=== PATIENT | female | born 1990 | race Caucasian/White ===

== ENCOUNTER 2022-12-30 09:18 | Outpatient (CLI) | payer OTHER, SELFPAY | END 2022-12-30 09:19 | disposition home or self-care (01) | PROVIDERS: PCP Family Medicine; Visit Provider Physician Assistant | DX: Z01.419 Encounter for gynecological examination (general) (routine) without abnormal findings (principal); E66.09 Other obesity due to excess calories; Z13.6 Encounter for screening for cardiovascular disorders; Z13.1 Encounter for screening for diabetes mellitus | CPT/HCPCS: 80061; 82947; 84439; 84443 ==

== ENCOUNTER 2022-12-31 09:01 | Outpatient (CLI) | payer OTHER, SELFPAY | END 2022-12-31 09:02 | disposition home or self-care (01) | PROVIDERS: PCP Family Medicine; Visit Provider Family Medicine | DX: I10 Essential (primary) hypertension (principal); E55.9 Vitamin D deficiency, unspecified | CPT/HCPCS: 80053; 82306 ==

== ENCOUNTER 2023-01-30 10:41 | Outpatient (CLI) | payer OTHER, SELFPAY | END 2023-01-30 10:42 | disposition home or self-care (01) | PROVIDERS: PCP Family Medicine; Referring Provider Family Medicine; Visit Provider Family Medicine | DX: E55.9 Vitamin D deficiency, unspecified (principal); I10 Essential (primary) hypertension; R94.6 Abnormal results of thyroid function studies; Z13.6 Encounter for screening for cardiovascular disorders | CPT/HCPCS: 80061; 84443 ==

== ENCOUNTER 2023-03-02 11:11 | Outpatient (CLI) | payer OTHER, SELFPAY ==
--- NOTE | 2023-03-02 12:26 | W.ANESCHARGE ---
Anesthesia Charges Start Date/Time Anesthesia Start Date: 03/02/23 Anesthesia Start Time: 12:00 Stop Date/Time Anesthesia Stop Date: 03/02/23 Anesthesia Stop Time: 12:25
--- NOTE | 2023-03-02 12:45 | W.ANESCHARGE ---
Anesthesia Charges Start Date/Time Anesthesia Start Date: 03/02/23 Anesthesia Start Time: 12:00 Stop Date/Time Anesthesia Stop Date: 03/02/23 Anesthesia Stop Time: 12:25
== END 2023-03-02 11:12 | disposition home or self-care (01) ==
LOC: OP CLINIC 11:12
PROVIDERS: PCP Family Medicine; Visit Provider Internal Medicine
DX: Z12.11 Encounter for screening for malignant neoplasm of colon (principal); K63.5 Polyp of colon; Z80.0 Family history of malignant neoplasm of digestive organs
CPT/HCPCS: 00811; 45380; 88305; J2704

== ENCOUNTER 2023-06-04 13:48 | Outpatient (CLI) | payer OTHER, SELFPAY ==
--- NOTE | 2023-06-04 14:00 | US_ITS ---
Patient: ESSENCE BUTCHER Facility:?[facility] RIS Patient ID:?[id number] Site Patient ID:?[id number]. Site :?1992 Study:?US-OB Pelvis TA/TV Pelvic US-06/04/2023 2:47:47 PM Ordering Physician:Cory May Final Report: INDICATION: Infertility TECHNIQUE: Transabdominal and transvaginal scanning was performed. Transvaginal scanning was performed to optimally evaluate the endometrium and adnexa. Ovarian blood flow was evaluated with color-flow and pulsed Doppler. COMPARISON: None. FINDINGS: The uterus is normal in size and shape. The uterus measures 6.8 x 3.0 x 4.1 cm. No myometrial mass is evident. The endometrial stripe is normal in thickness at 6 mm. A simple 2.6 cm right ovarian follicular cyst is noted. The right ovary measures 5.3 x 3.5 x 2.6 cm and left 3.1 x 2.6 x 2.1 cm. Ovarian blood flow is demonstrated with color-flow and pulsed Doppler. No adnexal mass is evident. No free fluid is demonstrated. IMPRESSION: Negative pelvic ultrasound except for a simple 2.6 cm right ovarian follicular cyst. Dictated by Jorge Gallegos MD @ 06/05/2023 11:54:53 AM Signed by:?Jorge Gallegos MD @06/05/2023 11:54:53 AM (Electronic Signature)
== END 2023-06-04 13:49 | disposition home or self-care (01) ==
LOC: US 13:48
PROVIDERS: PCP Family Medicine; Visit Provider Physician Assistant
DX: N97.9 Female infertility, unspecified (principal); N83.201 Unspecified ovarian cyst, right side
CPT/HCPCS: 76830; 76856

== ENCOUNTER 2023-06-15 11:10 | Outpatient (CLI) | payer OTHER, SELFPAY | END 2023-06-15 11:11 | disposition home or self-care (01) | LOC: NFLDREF 07-06 12:00 | PROVIDERS: PCP Family Medicine; Referring Provider Family Medicine; Visit Provider Physician Assistant | DX: N97.9 Female infertility, unspecified (principal) | CPT/HCPCS: 82670; 83001; 83520; 84146; 84443 ==

== ENCOUNTER 2023-06-16 10:20 | Outpatient (CLI) | payer OTHER, SELFPAY ==
--- NOTE | 2023-06-16 10:15 | FL_ITS ---
Patient: ESSENCE BUTCHER Facility:?[facility] RIS Patient ID:?[id number] Site Patient ID:?[id number]. Site :?1992 Study:?XRay-Abdomen HSG UNDER FLUORO-06/16/2023 12:16:14 PM Ordering Physician:TAMERA Final Report: Indication: INFERTILITY Technique: Routine hysterosalpingogram performed. Fluoroscopic time 0.17 minutes. IMPRESSION: Normal spillage of contrast from the endometrial canal through the patent fallopian tubes into the peritoneal cavity. No filling defect. Normal exam. Dictated by Chico Multani MD @ 06/16/2023 12:31:49 PM Signed by:?Chico Multani MD @06/16/2023 12:31:49 PM (Electronic Signature)
--- NOTE | 2023-06-16 12:07 | W.PM.GYNPROC ---
Procedure Note Date of procedure: 06/16/23 Will [facility] bill your pro fee for this procedure?: Yes Pre-op diagnosis: Primary Infertility Post-op diagnosis: Primary Infertility Procedure: Hysterosalpingogram Anesthesia: none Complications: None Surgeon: Damaris Oneill MD Estimated blood loss (mL): 5 Pathology: none sent Condition: stable Disposition: other (Outpatient) Findings: Normal exam. Procedure Description: PROCEDURE: After obtaining verbal consent, the patient was placed in the dorsal lithotomy position on the x-ray table. An open-sided bivalve speculum was introduced into the vagina and the cervix easily visualized. The cervix and vagina were then prepped with Betadine. The anterior lip of the cervix was grasped with a single-tooth tenaculum for traction. A balloon tipped double-lumen catheter was then gently inserted through the cervical opening into the uterine cavity to the level of the fundus. The balloon was insufflated with 3 mL of air. The tenaculum and speculum were removed. The patient was repositioned in the supine position, covered, and the radiologist was called to the room. A hysterosalpingogram was then performed. A total of 15 cc of Optiray 300 water soluble contrast dye was injected through the double-lumen catheter under moderate pressure. There was immediate fill of the uterine cavity to the cornua and immediate fill of both fallopian tubes and free spillage of dye on both sides. The balloon was deflated. The catheter was removed. The patient tolerated the procedure well, though she did have moderate cramping discomfort during and just after the procedure. She was discharged to home in stable condition and to [facility].
== END 2023-06-16 10:21 | disposition home or self-care (01) ==
LOC: RAD 10:21
PROVIDERS: PCP Family Medicine; Visit Provider Obstetrics & Gynecology
DX: N97.9 Female infertility, unspecified (principal)
CPT/HCPCS: 58340; 74740; A4649; Q9967

== ENCOUNTER 2023-07-02 11:23 | Outpatient (CLI) | payer OTHER, SELFPAY | END 2023-07-02 11:24 | disposition home or self-care (01) | LOC: NFLDREF 07-19 23:41 | PROVIDERS: PCP Family Medicine; Referring Provider Family Medicine; Visit Provider Physician Assistant | DX: N97.9 Female infertility, unspecified (principal) | CPT/HCPCS: 84144 ==

== ENCOUNTER 2024-01-04 10:16 | Outpatient (CLI) | payer OTHER, SELFPAY | END 2024-01-04 10:17 | disposition home or self-care (01) | LOC: NFLDREF 01-06 14:17 | PROVIDERS: PCP Family Medicine; Referring Provider Family Medicine; Visit Provider Family Medicine | DX: E78.5 Hyperlipidemia, unspecified (principal); I10 Essential (primary) hypertension; E55.9 Vitamin D deficiency, unspecified | CPT/HCPCS: 80053; 82306; 83540; 83550 ==

== ENCOUNTER 2024-01-21 08:57 | Outpatient (CLI) | payer OTHER, SELFPAY ==
--- NOTE | 2024-01-21 09:15 | CRLHL7_ITS ---
For Patients: As a result of the Century Cures Act, medical imaging exams and procedure reports are released immediately into your electronic medical record. You may view this report before your referring provider. If you have questions, please contact your health care provider. INDICATION: First trimester scan, establish dates. COMPARISON: None. TECHNIQUE: Real-time painting-scale imaging of the pelvis was performed. FINDINGS: Sonographic imaging demonstrates a single living intrauterine gestation. The embryo demonstrates a regular cardiac rate measuring 163 beats per minute. The embryo`s crown-rump length measurement of 1.5 cm corresponds to a gestational age of 7 weeks 6 days with a sonographic due date of 09/02/2024. There is a normal-appearing yolk sac. There are no gross abnormalities noted within the embryo at this early state of development. The gestational sac has a normal appearance. There is no evidence of a perigestational hemorrhage. The amount of fluid within the sac appears appropriate for gestational age. The cervix is closed. The myometrium appears normal. Normal right ovary. Corpus luteal cyst left ovary. There are no suspicious fluid collections noted in the cul-de-sac. IMPRESSION: Normal first trimester OB ultrasound exam. Gestational age calculated at 7 weeks 6 days with a sonographic due date of 09/02/2024. Dictated by Chico Multani MD @ 01/22/2024 9:02:26 AM (Electronically Signed)
== END 2024-01-21 08:58 | disposition home or self-care (01) ==
LOC: US 08:59
PROVIDERS: PCP Family Medicine; Visit Provider Physician Assistant
DX: Z34.81 Encounter for supervision of other normal pregnancy, first trimester (principal); Z3A.01 Less than 8 weeks gestation of pregnancy
CPT/HCPCS: 76817

== ENCOUNTER 2024-01-21 10:09 | Outpatient (CLI) | payer OTHER, SELFPAY | END 2024-01-21 10:10 | disposition home or self-care (01) | PROVIDERS: PCP Family Medicine; Visit Provider Physician Assistant | DX: Z34.91 Encounter for supervision of normal pregnancy, unspecified, first trimester (principal); Z3A.01 Less than 8 weeks gestation of pregnancy | CPT/HCPCS: 82565; 82570; 83021; 84156; 84450; 84460; 84520; 86592; 86703; 86704; 86706; 86762; 86787; 86803; 86850; 86900; 86901; 87086; 87340 ==

== ENCOUNTER 2024-02-19 11:04 | Outpatient (CLI) | payer OTHER, SELFPAY ==
[2024-02-19 14:43] LABS: Chlamydia DNA Amplified* NOT DETECTED (No Detected); GC DNA Amplified* NOT DETECTED (No Detected)
[2024-02-21 04:40] LABS: HPV Source Cervical; HPV, High Risk by TMA Not Detected
== END 2024-02-19 11:05 | disposition home or self-care (01) ==
PROVIDERS: PCP Family Medicine; Visit Provider Obstetrics & Gynecology
DX: Z34.91 Encounter for supervision of normal pregnancy, unspecified, first trimester (principal); Z12.4 Encounter for screening for malignant neoplasm of cervix; Z11.3 Encounter for screening for infections with a predominantly sexual mode of transmission; Z3A.12 12 weeks gestation of pregnancy
CPT/HCPCS: 87491; 87591; 87624; 87625; 88141; 88142

== ENCOUNTER 2024-03-11 07:45 | Outpatient (CLI) | payer OTHER, SELFPAY | END 2024-03-11 07:46 | disposition home or self-care (01) | LOC: NFLDREF 03-20 23:44 | PROVIDERS: PCP Family Medicine; Referring Provider Family Medicine; Visit Provider Physician Assistant | DX: Z34.91 Encounter for supervision of normal pregnancy, unspecified, first trimester (principal) | CPT/HCPCS: 82570; 84156 ==

== ENCOUNTER 2024-06-09 14:30 | Outpatient (CLI) | payer OTHER, SELFPAY | END 2024-06-09 14:31 | disposition home or self-care (01) | LOC: NFLDREF 06-12 08:15 | PROVIDERS: PCP Family Medicine; Referring Provider Family Medicine; Visit Provider Internal Medicine Nephrology | DX: O12.12 Gestational proteinuria, second trimester (principal); E87.1 Hypo-osmolality and hyponatremia; R82.90 Unspecified abnormal findings in urine; Z3A.20 20 weeks gestation of pregnancy | CPT/HCPCS: 80069; 82043; 82570; 84439; 84443; 87086 ==

== ENCOUNTER 2024-06-13 08:56 | Outpatient (CLI) | payer OTHER, SELFPAY ==
--- NOTE | 2024-06-13 09:15 | CRLHL7_ITS ---
For Patients: As a result of the Century Cures Act, medical imaging exams and procedure reports are released immediately into your electronic medical record. You may view this report before your referring provider. If you have questions, please contact your health care provider. OB ULTRASOUND FOLLOW-UP LIMITED, 06/13/2024 CLINICAL HISTORY: CHTN. COMPARISON: 05/05/2024 MFM, 04/15/2024 MFM, 01/21/2024. TECHNIQUE: Real time painting scale imaging of the fetus was performed transabdominally. FINDINGS: LMP: 11/27/2023. HE by LMP: 09/02/2024. GA: 28 weeks 3 days. CERVIX: TV measurement 2.8 cm. POSITIONING: Vertex. AMNIOTIC FLUID: 5.5 cm SDP. PLACENTA: Technique: TA. Placenta Position: Anterior. DOPPLERS: Heart Rate: 157 bpm. BIOMETRY: BPD: 7.5 cm, 29 weeks 6 days. 82.1% HC: 26.8 cm, 29 weeks 2 days. 41.9% AC: 27.5 cm, 31 weeks 4 days. >97% FL: 5.4 cm, 28 weeks 4 days. 38.1% FL/AC Ratio: 19.6% HC/AC Ratio: 1.0. EFW: 1541 grams, 3 lb 6 oz. Age by this US: 29 weeks 6 days. HE by this US: 08/23/2024. Percentile by HE: 94.5?% IMPRESSION: 1. Sonographic gestational age 29 weeks 6 days and sonographic due date 08/23/2024. Sonographic age 10 days ahead of the clinical age. 2. Estimated weight 95th percentile. Abdominal circumference greater than 97th percentile. 3. Note is made that the head measurements were difficult due to position. Transabdominal and transvaginal imaging techniques were attempted. The cervix is closed and measures 2.9 cm. Chico Multani M.D. Diagnostic Radiologist [email or web address] Transcribed: 3:25 pm DW/Dictated by: Chico Multani MD @ 06/13/2024 2:50:00 PM (Electronically Signed)
== END 2024-06-13 08:57 | disposition home or self-care (01) ==
LOC: US 08:56
PROVIDERS: PCP Family Medicine; Visit Provider Obstetrics & Gynecology
DX: O10.913 Unspecified pre-existing hypertension complicating pregnancy, third trimester (principal); O36.63X0 Maternal care for excessive fetal growth, third trimester, not applicable or unspecified; Z3A.28 28 weeks gestation of pregnancy
CPT/HCPCS: 76816; 76817; 86592

== ENCOUNTER 2024-07-12 09:06 | Outpatient (CLI) | payer OTHER, SELFPAY ==
--- NOTE | 2024-07-12 09:15 | CRLHL7_ITS ---
For Patients: As a result of the Century Cures Act, medical imaging exams and procedure reports are released immediately into your electronic medical record. You may view this report before your referring provider. If you have questions, please contact your health care provider. OB ULTRASOUND BIOPHYSICAL PROFILE, 07/12/2024 CLINICAL HISTORY: CHTN. COMPARISON: 06/13/2024, 05/05/2024, 04/15/2024. TECHNIQUE: Real time painting scale imaging of the fetus was performed. Transabdominal imaging performed. FINDINGS: LMP: 11/27/2023. HE by LMP: 09/02/2024. GA: 32 weeks 4 days. GESTATION: Single. CERVIX: Not visualized. POSITION: Vertex. AMNIOTIC FLUID: 3.7 cm SDP. BIOPHYSICAL PROFILE: Gross Body Movements: 2 Tone: 2 Respiratory Activity: 2 Amniotic Fluid SDP: 2 Total: 8/8 PLACENTA: Technique: TA. Placenta Position: Anterior. DOPPLERS: Heart Rate: 141 bpm. BIOMETRY: BPD: 8.4 cm, 34 weeks 0 days. 81.9% HC: 29.7 cm, 32 weeks 6 days. 20.4% AC: 31.5 cm, 35 weeks 3 days. >97% FL: 6.0 cm, 31 weeks 3 days. 12.1% EFW: 2312 grams, 5 lb 2 oz. Age by this US: 33 weeks 3 days. HE by this US: 08/27/2024. Percentile by HE: 81.9% IMPRESSION: 1. Normal biophysical profile score of 8/8. 2. Sonographic gestational age 33 weeks 3 days and sonographic due date 08/27/2024. Sonographic age 6 days ahead of the clinical age. 3. Estimated weight 82nd percentile. Abdominal circumference greater than 97th percentile. 4. The nuchal cord is wrapped around the neck 1.5 times. Chico Multani M.D. Diagnostic Radiologist [email or web address] Transcribed: 11:00 am DW/Dictated by: Chico Multani MD @ 07/12/2024 10:27:00 AM (Electronically Signed)
== END 2024-07-12 09:07 | disposition home or self-care (01) ==
PROVIDERS: PCP Family Medicine; Visit Provider Obstetrics & Gynecology
DX: O10.913 Unspecified pre-existing hypertension complicating pregnancy, third trimester (principal); O36.5930 Maternal care for other known or suspected poor fetal growth, third trimester, not applicable or unspecified; Z3A.32 32 weeks gestation of pregnancy
CPT/HCPCS: 76816; 76819; 82565; 82570; 84156; 84450; 84460

== ENCOUNTER 2024-07-18 09:04 | Outpatient (CLI) | payer OTHER, SELFPAY ==
--- NOTE | 2024-07-18 09:15 | CRLHL7_ITS ---
For Patients: As a result of the Century Cures Act, medical imaging exams and procedure reports are released immediately into your electronic medical record. You may view this report before your referring provider. If you have questions, please contact your health care provider. LMP: 11/27/2023. HE by LMP: 09/02/2024. GA: 33w, 3d. Single. INDICATION: CHTN. CERVIX: Not visualized. POSITIONING: Vertex. AMNIOTIC FLUID: 5.3 cm SDP. BIOPHYSICAL PROFILE: Total score: 8. Gross body movements: 2. tone: 2. Respiratory activity: 2. Amniotic fluid: 2. (SDP N: Increase 2 x 1 cm) PLACENTA: Technique: Transabdominal. PLACENTA POSITION: Anterior left wall. DOPPLER: heart rate: 138 bpm. IMPRESSION: Normal biophysical profile 09/23. Chico Multani M.D. Diagnostic Radiologist [email or web address] bM/Dictated by: Chico Multani MD @ 07/18/2024 8:49:00 PM (Electronically Signed)
== END 2024-07-18 09:05 | disposition home or self-care (01) ==
LOC: US 09:04
PROVIDERS: PCP Family Medicine; Visit Provider Obstetrics & Gynecology
DX: O10.913 Unspecified pre-existing hypertension complicating pregnancy, third trimester (principal); Z3A.33 33 weeks gestation of pregnancy
CPT/HCPCS: 76819; 82565; 82570; 84156; 84450; 84460

== ENCOUNTER 2024-07-21 15:00 | Outpatient (CLI) | payer OTHER, SELFPAY | END 2024-07-21 15:01 | disposition home or self-care (01) | LOC: NFLDREF 07-23 07:18 | PROVIDERS: PCP Family Medicine; Referring Provider Family Medicine; Visit Provider Obstetrics & Gynecology | DX: O12.10 Gestational proteinuria, unspecified trimester (principal) | CPT/HCPCS: 82570; 84156 ==

== ENCOUNTER 2024-07-25 08:08 | Outpatient (CLI) | payer OTHER, SELFPAY ==
--- NOTE | 2024-07-25 08:15 | CRLHL7_ITS ---
For Patients: As a result of the Century Cures Act, medical imaging exams and procedure reports are released immediately into your electronic medical record. You may view this report before your referring provider. If you have questions, please contact your health care provider. OB ULTRASOUND BIOPHYSICAL PROFILE TRANSABDOMINAL HE by LMP: . GA: 34 w, 3 d. Single. Comparison: US 07/18/2024, 07/12/2024, 06/13/2024. INDICATION: CHTN. TECHNIQUE: Real time painting scale imaging of the fetus was performed. Transabdominal imaging performed. CERVIX: Not visualized. POSITIONING: Vertex. AMNIOTIC FLUID: 4.0 cm SDP (N: greater than 2 x 1 cm) BIOPHYSICAL PROFILE: Gross body movements: 2. tone: 2. Respiratory activity: 2. Amniotic fluid: 2. SDP (N: greater than 2 x 1 cm). Total score: 8. PLACENTA: Technique: Transabdominal. PLACENTA POSITION: Anterior. DOPPLER: heart rate: 144 bpm. IMPRESSION: Normal biophysical profile 09/23. Chico Multani M.D. Diagnostic Radiologist [email or web address] SP/Dictated by: Chico Multani MD @ 07/25/2024 4:39:00 PM (Electronically Signed)
== END 2024-07-25 08:09 | disposition home or self-care (01) ==
LOC: US 08:09
PROVIDERS: PCP Family Medicine; Visit Provider Obstetrics & Gynecology
DX: O10.919 Unspecified pre-existing hypertension complicating pregnancy, unspecified trimester (principal)
CPT/HCPCS: 76819; 80069; 82043; 82565; 82570; 84156; 84450; 84460; 84550; 87086

== ENCOUNTER 2024-08-01 09:01 | Outpatient (CLI) | payer OTHER, SELFPAY ==
--- NOTE | 2024-08-01 09:15 | CRLHL7_ITS ---
For Patients: As a result of the Century Cures Act, medical imaging exams and procedure reports are released immediately into your electronic medical record. You may view this report before your referring provider. If you have questions, please contact your health care provider. OBSTETRICAL ULTRASOUND ??? BIOPHYSICAL PROFILE, 08/01/2024 INDICATION: CHTN, preeclampsia. Biophysical profile. Follow-up growth. CLINICAL HISTORY: LMP: 11/27/2023 HE by LMP: 09/02/2024 Gestational Age: 35 weeks 3 days PREVIOUS ULTRASOUND: 07/25/2024. TECHNIQUE: Real-time painting-scale transabdominal imaging of the fetus was performed. FINDINGS: Fetus: Single Cervix: Not visualized positioning: Vertex Amniotic Fluid: 6.2 cm SDP BIOPHYSICAL PROFILE: Gross body movements: 2 tone: 2 Respiratory activity: 2 Amniotic fluid SDP: 2 Total score: 8 Placenta technique: Transabdominal Placenta position: Anterior heart rate: 154 bpm BIOMETRY: BPD: 8.8 cm, 35 weeks 5 days, 61% HC: 32.7 cm, 37 weeks 0 days, 58% AC: 37.6 cm, 41 weeks 3 days, >97% FL: 6.8 cm, 35 weeks 0 days, 32% FL/AC Ratio: 18.14% HC/AC ratio: 0.87 EFW: 3637 grams; 8 lbs. 0 oz. age by this ultrasound: 37 weeks 2 days HE by this ultrasound: 08/20/2024 Percentile by HE: >97% IMPRESSION: 1. Normal biophysical profile score of 8/8. 2. Sonographic gestational age 37 weeks 2 days and sonographic due date 08/20/2024. Sonographic age is 13 days ahead of the clinical age. 3. Estimated weight is greater than 97th percentile. Abdominal circumference is greater than 97th percentile. CHICO ROJAS M.D. Diagnostic Radiologist [email or web address] Transcribed: 1:[address]/Dictated by: Chico Rojas MD @ 08/01/2024 10:57:00 AM (Electronically Signed)
== END 2024-08-01 09:02 | disposition home or self-care (01) ==
LOC: US 09:02
PROVIDERS: PCP Family Medicine; Visit Provider Obstetrics & Gynecology
DX: O14.93 Unspecified pre-eclampsia, third trimester (principal); O36.63X0 Maternal care for excessive fetal growth, third trimester, not applicable or unspecified; Z3A.35 35 weeks gestation of pregnancy
CPT/HCPCS: 76816; 76819; 82565; 82570; 84156; 84450; 84460; 87081; 87653

== ENCOUNTER 2024-08-08 08:06 | Outpatient (CLI) | payer OTHER, SELFPAY ==
--- NOTE | 2024-08-08 08:15 | CRLHL7_ITS ---
For Patients: As a result of the Cures Act, medical imaging exams and procedure reports are released immediately into your electronic medical record. You may view this report before your referring provider. If you have questions, please contact your health care provider. OB ULTRASOUND BIOPHYSICAL PROFILE, 08/08/2024 CLINICAL HISTORY: Pre-eclampsia. TECHNIQUE: Real time painting scale imaging of the fetus was performed. Transvaginal imaging performed. FINDINGS: LMP: 11/27/2023. HE by LMP: 09/02/2024. GA: 36 weeks 3 days. Gestation: Single. Cervix: Not visualized. Positioning: Vertex. Amniotic Fluid: 4.9 cm SDP. Biophysical Profile: Gross Body Movements: 2 Tone: 2 Respiratory Activity: 2 Amniotic Fluid SDP: 2 Total Score: 8 Placenta: Technique: TA. Placenta Position: Anterior. Dopplers: Heart Rate: 151 bpm. IMPRESSION: Normal biophysical score of 8/8. Chico Multani M.D. Diagnostic Radiologist [email or web address] Transcribed: 11:33 am DW/Dictated by: Chico Multani MD @ 08/08/2024 11:04:00 AM (Electronically Signed)
== END 2024-08-08 08:07 | disposition home or self-care (01) ==
LOC: US 08:06
PROVIDERS: PCP Family Medicine; Visit Provider Obstetrics & Gynecology
DX: O14.93 Unspecified pre-eclampsia, third trimester (principal); Z3A.36 36 weeks gestation of pregnancy
CPT/HCPCS: 76819; 82565; 82570; 84156; 84450; 84460

== ENCOUNTER 2024-08-09 19:23 | Inpatient (IN) | payer OTHER, SELFPAY ==
--- OUTSIDE RECORDS SUMMARY | 2024-07-26 15:00 | XMS_ITS | Encounter Summary ---
Author Organization [facility] Address [address] [place] [id number] Care Team Providers Care Arts Administrator Or Manager Name Role Phone Unavailable Primary Care Provider Unavailabl e Reason for Visit * Appointment Request (Routine) - Closed Specialty Diagnoses / Procedures Referred By Contac t Referred To Contact Nephrology and Hypertension Referral ID Status Reason Start Date Expiration Date Visits Re quested Visits Authorized [id number] Closed 06/17/2024 09/17/2025 1 1 Encounter Details Date Type Department Care Team (Latest Contact Info) Description 07/26/2024 3:00 PM CDT External Outreach Division of Nephrology and Hypertension in [place], [place] [address] [place] [address] Rick Rodriguez Jr., D.O. 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 - 07/26/2024 3:00 PM CDT Referring Provider: No primary care provider on file. SUBJECTIVE REASON FOR VISIT [facility] Follow-up regards proteinuria detected during the 1st trimester of with hypertension HISTORY OF PRESENT ILLNESS Mrs. Urbina is a 34 y.o. female who presents with a history of proteinuria in , with microalbuminuria. She is currently 34 and 4/7 week . She is having some movements, and some lower extremity swelling. I appreciate that obstetrics has plan for her to deliver on the last week of the month, right at 37 weeks. Note her proteinuria has remained stable, her microalbumin to creatinine ratiois slightly improved, and is currently 230 milligrams/gram compared with 260 milligrams/gram done last month. Her total 24 hour urine protein was 840 mg, which was slightly higher than our 350 mg earlier in the . Her blood pressures been excellent she is on labetalol 100 mg orally twice daily. She is also on aspirin, multivitamin. She is doing well with hydration and plans to stop working next week. No right upper quadrant pain, her sodium is 134, and creatinine appropriately 0.5 mg/dL no liver function tests changes. I note that there some delusional change with respect to her albumin as well at 3.2. Met with her today and agreed with the plan for her to deliver at 37 weeks, and to continueher very close monitoring of her blood pressure which has been in the 1 teens and 120s at home and monitor for also any right upper quadrant pain, worsening edema, foaminess of the urine. Medical History[1] Current Medications[2] REVIEW OF SYSTEMS All other systems reviewed and are negative. OBJECTIVE BP 128/85 Pulse 96 Ht 180.3 cm Wt 132 kg LMP 11/27/2023 BMI 40.51 kg/m?? PHYSICAL EXAMINATION General: Awake, alert, oriented. HEENT: KENDRA, EOMI, mucous membranes moist, no oral lesions. Neck: No masses, no bruits. Lungs: Clear to auscultation. Heart: Regular rate and rhythm. No ectopy, murmurs, or rubs. Abdomen: Soft, non-tender. Gravid uterus Extremities: No cyanosis, no clubbing, no pitting edema, but some generalized swelling of her handsand feet. Neuro: Cranial nerves intact. Gait is normal, strength grossly normal. Skin: No suspicious lesions identified. Psychiatric: Normal affect. DIAGNOSTICS Note 24 hour urine protein 840 mg, note her microalbumin to creatinine ratio stable. Her total 24 hour urine volume was substantial at 3500 cc. Stable, if not improved protein to creatinine ratio ASSESSMENT / PLAN #1 Hypertension Essential Pre-Existing (HCC) Agree with the plan to deliver her on the day she meets 37 weeks. We reviewed the signs and symptoms of preeclampsia, and our plans with respect to her blood pressure. Going forward: 1. Low-sodium diet 2. 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 Monitor blood pressure twice daily, labetalol should continue at 100 mg twice daily and could beincreased if her systolic pressure exceeds 140. 4. Contact me if her blood pressure is above 140 5. Monitor for lower extremity swelling or right upper quadrant pain, which would prompt immediate chemistries and liver function testing and potentially delivery. 6. I have orchestrate a return visit to Nephrology in late October 2 rechecked following . I have also given her my cell phone and personal contact number to help with any questions. #2 Proteinuria As above this is pre-existing prior to . Total time: 30 minutes Counseling Time: 25 minutes Rick Rodriguez Jr., D.O. [1] No past medical history on file. [2] Current Outpatient Medications: aspirin [address] tablet, Take 1 tablet (81 mg total) by mouth daily., Disp: , Rfl: labetaloL 100 mg tablet, Take 1 tablet (100 mg total) by mouth every 12 (twelve) hours., Disp: , Rfl: ljackcb-Vb-nkcm-FA 27 mg iron- 1 mg tablet, Take 1 tablet by mouth daily., Disp: , Rfl: documented in this encounter Plan of Treatment Not on file documented as of this encounter Visit Diagnoses Diagnosis Hypertension Essential Pre-Existing (HCC)- Primary Proteinuria documented in this encounter
[2024-08-09] VITALS (10 sets, daily range): BP systolic 118–145; BP diastolic 78–95; PULSE 82–97; RESP 16–18; TEMP 36.6–37.3; O2SAT 96–97; BMI 40.4
--- OUTSIDE RECORDS SUMMARY | 2024-08-09 19:06 | XMS_ITS | Encounter Summary ---
Author Organization [facility] Address [address] [place] [address] Care Team Providers Care Tax Accountant Name Role Phone Unavailable Primary Care Provider Unavailabl e Encounter Details Date Type Department Care Team (Late st Contact Info) Description 07/25/2024 Orders Only Division of Nephrology and Hypertension in [place], [place] [address] [place] [address] External, Ordering ProviderPretty Social History Tobacco Use Types Packs/Day Years Used Date Smoking Tobacco: Never Assessed Estimated Date of Delivery Comme nts Yes 09/12/2024 Sex and Gender Information Value Date Recorded Sex Assigned at Not on file 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 Gender Identity Not on file Sexual Orientation Not on file documented as of this encounter Plan of Treatment Not on file documented as of this encounter Procedures Procedure Name Priority Date/Time Associated Diagnosis Comments RENAL FUNCTION PANEL, S Routine 07/25/2024 8:05 AM CDT URIC ACID, S/P Routine 07/25/2024 8:05 AM CDT documented in this encounter Results * (ABNORMAL) Renal Function Panel (07/25/2024 8:05 AM CDT) EXT Sodium 134(L) 135 - 149 mmol/L [facility] EXT Potassium 4.4 3.6 - 5.1 mmol/L [facility] EXT Chloride 106 96 - 114 mmol/L [facility] EXT CO2 22 20 - 32 mmol/L [facility] EXT Anion Gap 6(L) 7 - 15 mEq/L [facility] EXT BUN (Blood Urea Nitrogen) 7 5 - 24 mg/dL [facility] EXT Creatinine 0.5 0.5 - 1.5 mg/dL [facility] EXT Estimated GFR (eGFR) 128 ml/min [facility] EXT Calcium, Total 8.9 8.4 - 10.6 mg/dL [facility] EXT Glucose 172(H) 60 - 115 mg/dL [facility] EXT Albumin 3.2(L) 3.3 - 5.0 g/dL [facility] EXT Phosphorus (Inorganic), S 3.4 2.5 - 4.5 mg/dL [facility] 07/25/2024 8:05 AM CDT Narrative [employer] [facility] - 07/25/2024 3:32 PM CDT Source result document attached to Order Number [id number] ([id number]) dated 07/25/2024. External results verified in Extract by Corrine Daigle on 07/25/2024 at 03:28 PM. us Ordering Provider External Pretty LAB BLOOD ADD-ON Final Result Performing Organization Address [place]/ZIP Co de Phone Number [facility] [address] [place] [address], [facility] [phone] * Uric Acid (07/25/2024 8:05 AM CDT) EXT Uric Acid, S 6.1 2.2 - 8.4 mg/dL [facility] 07/25/2024 8:05 AM CDT Narrative [facility] - 07/25/2024 3:32 PM CDT External results verified in Extract by Corrine Daigle on 07/25/2024 at 03:28 PM. us Ordering Provider External Pretty LAB BLOOD ADD-ON Final Result Performing Organization Address [place]/ZIP Co de Phone Number [facility] [address] [phone] documented in this encounter Visit Diagnoses Not on filedocumented in this encounter
--- OUTSIDE RECORDS SUMMARY | 2024-08-09 19:06 | XMS_ITS | Encounter Summary ---
Author Organization [facility] Address [address] [place] [address] Care Team Providers Care Restaurant Maintenance Technician Name Role Phone Unavailable Primary Care Provider Unavailabl e Encounter Details Date Type Department Care Team (Late st Contact Info) Description 07/25/2024 Orders Only Division of Nephrology and Hypertension in [place], [place] [address] [place] [address] External, Ordering ProviderPretty Social History Tobacco Use Types Packs/Day Years Used Date Smoking Tobacco: Never Assessed Estimated Date of Delivery Comme nts Yes 09/12/2024 Sex and Gender Information Value Date Recorded Sex Assigned at Not on file 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 Gender Identity Not on file Sexual Orientation Not on file documented as of this encounter Plan of Treatment Not on file documented as of this encounter Procedures Procedure Name Priority Date/Time Associated Diagnosis Comments EXTP URINALYSIS WITH MICROSCOPY, URINE Routine 07/25/2024 8:05 AM CDT ALBUMIN, RANDOM, U Routine 07/25/2024 8: 05 AM CDT documented in this encounter Results * (ABNORMAL) EXT Urinalysis with Microscopy, Urine (07/25/2024 8:05 AM CDT) EXT Color Yellow Yellow [facility] EXT Appearance, Urine Clear Clear [facility] EXT Glucose Qualitative, Urine Trace(H) Negative [facility] EXT Bilirubin, Urine Negative Negative [facility] EXT Ketones, POCT, Urine Negative Negative [facility] EXT Specific [place], POCT, Urine 1.025 1.000 - 1.030 [facility] EXT Blood, Urine 1+(A) Negative [facility] EXT pH, Random, Urine 7.0 5.0 - 8.5 [facility] EXT Protein, Urine 2+(A) Negative [facility] EXT Urobilinogen, Urine 0.2 0.2 - 1.0 [facility] EXT Nitrite, Urine Negative Negative [facility] EXT Leukocyte Esterase, Urine Negative Negative [facility] EXT Red Blood Cells, U 0-2 0 - 2 [facility] EXT White Blood Cells, U 0-2 0 - 5 [facility] EXT Squamous Cells Few None-Few [facility] EXT Bacteria Few(H) None [facility] EXT Mucus Few(H) None [facility] 07/25/2024 8:05 AM CDT Narrative [facility] - 07/25/2024 10:17 AM CDT Source result document attached to Order Number [id number] ([id number]) dated 07/25/2024. External results verified in Extract by Corrine Daigle on 07/25/2024 at 10:13 AM. us Ordering Provider External Pretty LAB URINE ORDERA BLES Final Result Performing Organization Address [facility]/ZIP Co de Phone Number [facility] [address] [phone] * (ABNORMAL) Albumin, Random, Urine (07/25/2024 8:05 AM CDT) EXT Creatinine, Urine 139.0 mg/dL [facility] EXT Microalbumin-R andom, U 33 mg/dL [facility] EXT Albumin/Creati nine Ratio 230(H) 0 - 30 [facility] 07/25/2024 8:05 AM CDT Narrative [facility] - 07/25/2024 10:17 AM CDT External results verified in Extract by Corrine Daigle on 07/25/2024 at 10:14 AM. us Ordering Provider External Pretty LAB URINE ORDERA BLES Final Result Performing Organization Address [facility]/ZIP Co de Phone Number [facility] [address] [place] [address] documented in this encounter Visit Diagnoses Not on filedocumented in this encounter
--- OUTSIDE RECORDS SUMMARY | 2024-08-09 19:06 | XMS_ITS | Clinical Summary ---
Author Organization [facility] Address [address] [place] [id number] Care Team Providers Care Director Child Abuse Therapy Name Role Phone Unavailable Primary Care Provider Unavailabl e Source Comments Patient records contain information from all sites at [facility]. For routine questions regarding patient records, call [phone] during business hours, M-F 8:00 AM - 5:00 PM Central Time. Record requests for emergency care only can be directed to [phone] at any time.[facility] Medications aspirin [address] tablet Take 1 tablet (81 mg total) by mouth daily. 04/18/2024 Active labetaloL 100 mg tablet Take 1 tablet (100 mg total) by mouth every 12 (twelve) hours. 04/18/2024 Active ilhoans-Vt-lgct- FA 27 mg iron- 1 mg tablet Take 1 tablet by mouth daily. 04/18/2024 Active Active Problems Problem Noted Date Diagnosed Date Proteinuria 06/13/2024 Supervision Of Wit h Other Poor Reproductive Or Obstetric History Second Trimester 06/13/2024 Hypertension Essential Pre-Existing Hyponatremia 04/18/2024 Estimated Date of Delivery Comme nts Yes 09/12/2024 Encounters Date Type Department Care Team Description 07/26/2024 3:00 PM CDT External Outreach Division of Nephrology and Hypertension in [place], [place] [address] [place] [address] Rick Rodriguez Jr., D.O. Hypertension Essential Pre-Existing (HCC) (Primary Dx); Proteinuria 07/25/2024 Orders Only Division of Nephrology and Hypertension in [place], [place] [address] [place] [address] Lor Lara M.D. 07/25/2024 Orders Only Division of Nephrology and Hypertension in [place], [place] [address] [place] [address] Lor Lara M.D. 07/25/2024 Orders Only Division of Nephrology and Hypertension in [place], [place] [address] [place] [address] Lor Lara M.D. 06/13/2024 3:00 PM CDT External Outreach Division of Nephrology and Hypertension in [place], [place] [address] [place] [address] Rick Rodriguez Jr., D.O. Hypertension Essential Pre-Existing (HCC) (Primary Dx); Proteinuria; Supervision Of With Other Poor Reproductive Or Obstetric History Second Trimester (HCC) 06/09/2024 Orders Only Division of Nephrology and Hypertension in [place], [place] [address] [place] [address] Lor Lara M.D. 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 Gender Identity Not on file Sexual Orientation Not on file Last Filed Vital Signs Vital Sign Reading [...] Mass Index 40.51 07/26/2024 3:13 PM CDT Plan of Treatment Health Maintenance Due Date Last Done Comments HIV Screening 1992 Hepatitis C Screening 1992 Cervical/Vaginal Cancer Screening 11/02/2023 11/01/2020 Depression Screening (Annual PHQ-2) 02/17/2024 Office Visit for Blood Pressure Check / Re-check 07/26/2025 07/26/2024 DTaP,Tdap,and Td Vaccines (9 - Td or Tdap) 06/30/2034 06/30/2024, 10/10/2020, 05/19/2014, Additional history exists Hepatitis B Vaccines Completed 09/30/1993, 1992, 1992 IPV Vaccines Completed 05/29/1997, 11/16, 1992, Additional history exists HPV Vaccines Completed 02/29/2016, 10/18, 05/19/2014 COVID-19 Vaccine Completed 01/21/2024, , 12/12/2020, Additional history exists Influenza Vaccine Completed 02/19/2024, , 11/10/2014, Additional history exists Tdap vaccine - (27-36 weeks) Completed 06/30/2024, 10/10/2020, 05/19/2014, Additional history exists Pneumococcal vaccine (0-49 years) Aged Out No longer eligible based on patient's age to complete this topic RSV vaccine - (32-36 weeks) or 60+ years (No Doses Required) Completed Procedures Procedure Name Priority Date/Time Associated Diagnosis Comments EXT OUTSIDE LAB TESTS Routine 07/25/2024 8:05 AM CDT RENAL FUNCTION PANEL, S Routine 07/25/2024 8:05 AM CDT URIC ACID, S/P Routine 07/25/2024 8:05 AM CDT EXTP URINALYSIS WITH MICROSCOPY, URINE Routine 07/25/2024 8:05 AM CDT ALBUMIN, RANDOM, U Routine 07/25/2024 8: 05 AM CDT ALBUMIN, RANDOM, U Routine 06/09/2024 2: 32 PM CDT EXTP URINALYSIS WITH MICROSCOPY, URINE Routine 06/09/2024 2:32 PM CDT T4 (THYROXINE), FREE, S Routine 06/09/2024 2:30 PM CDT RENAL FUNCTION PANEL, S Routine 06/09/2024 2:30 PM CDT EXT OUTSIDE LAB TESTS Routine 06/09/2024 from Last 3 Months Results * EXT Outside Lab Tests (07/25/2024 8:05 AM CDT) Only the most recent of2 resultswithin the time period is included. [facility] EXT Miscellaneous See scanned report [facility] 07/25/2024 8:05 AM CDT Narrative [facility] - 07/27/2024 7:45 AM CDT External results verified in Extract by Corrine Daigle on 07/27/2024 at 07:42 AM. us Ordering Provider External M.D. LAB BLOOD NON AD D-ON Final Result [facility] [address] [place] [address], [facility] [phone] * (ABNORMAL) EXT Urinalysis with Microscopy, Urine (07/25/2024 8:05 AM CDT) Only the most recent of2 resultswithin the time period is included. [facility] EXT Color Yellow Yellow [facility] EXT Appearance, Urine Clear Clear [facility] EXT Glucose Qualitative, Urine Trace(H) Negative [facility] EXT Bilirubin, Urine Negative Negative [facility] EXT Ketones, POCT, Urine Negative Negative [facility] EXT Specific [place], POCT, Urine 1.025 1.000 - 1.030 [facility] EXT Blood, Urine 1+(A) Negative [facility] EXT pH, Random, Urine 7.0 5.0 - 8.5 [facility] EXT Protein, Urine 2+(A) Negative [facility] EXT Urobilinogen, Urine 0.2 0.2 - 1.0 [facility] EXT Nitrite, Urine Negative Negative [facility] EXT Leukocyte Esterase, Urine Negative Negative [facility] EXT Red Blood Cells, U 0-2 0 - 2 [facility] EXT White Blood Cells, U 0-2 0 - 5 [facility] EXT Squamous Cells Few None-Few [facility] EXT Bacteria Few(H) None [facility] EXT Mucus Few(H) None [facility] 07/25/2024 8:05 AM CDT Narrative [facility] - 07/25/2024 10:17 AM CDT Source result document attached to Order Number [id number] ([id number]) dated 07/25/2024. External results verified in Extract by Corrine Daigle on 07/25/2024 at 10:13 AM. us Ordering Provider External Pretty LAB URINE ORDERA BLEAna Laura Final Result [facility] [address] [place] [address] * (ABNORMAL) Renal Function Panel (07/25/2024 8:05 AM CDT) Only the most recent of2 resultswithin the time period is included. EXT Sodium 134(L) 135 - 149 mmol/L [facility] EXT Potassium 4.4 3.6 - 5.1 mmol/L [facility] EXT Chloride 106 96 - 114 mmol/L [facility] EXT CO2 22 20 - 32 mmol/L [facility] EXT Anion Gap 6(L) 7 - 15 mEq/L [facility] EXT BUN (Blood Urea Nitrogen) 7 5 - 24 mg/dL [facility] EXT Creatinine 0.5 0.5 - 1.5 mg/dL [facility] EXT Estimated GFR (eGFR) 128 ml/min [facility] EXT Calcium, Total 8.9 8.4 - 10.6 mg/dL [facility] EXT Glucose 172(H) 60 - 115 mg/dL [facility] EXT Albumin 3.2(L) 3.3 - 5.0 g/dL [facility] EXT Phosphorus (Inorganic), S 3.4 2.5 - 4.5 mg/dL [facility] 07/25/2024 8:05 AM CDT Narrative [facility] - 07/25/2024 3:32 PM CDT Source result document attached to Order Number [id number] ([id number]) dated 07/25/2024. External results verified in Extract by Corrine Daigle on 07/25/2024 at 03:28 PM. us Ordering Provider External M.D. LAB BLOOD ADD-ON Final Result [facility] [address] [phone] * (ABNORMAL) Albumin, Random, Urine (07/25/2024 8:05 AM CDT) Only the most recent of2 resultswithin the time period is included. EXT Creatinine, Urine 139.0 mg/dL [facility] EXT Microalbumin-R andom, U 33 mg/dL [facility] EXT Albumin/Creati nine Ratio 230(H) 0 - 30 [facility] 07/25/2024 8:05 AM CDT [facility] - 07/25/2024 10:17 AM CDT External results verified in Extract by Corrine Daigle on 07/25/2024 at 10:14 AM. us Ordering Provider External M.DRuma LAB URINE ORDERA BLES Final Result [facility] [address] [place] [address], [facility] [phone] * Uric Acid (07/25/2024 8:05 AM CDT) EXT Uric Acid, S 6.1 2.2 - 8.4 mg/dL [facility] 07/25/2024 8:05 AM CDT Narrative [facility] - 07/25/2024 3:32 PM CDT External results verified in Extract by Corrine Daigle on 07/25/2024 at 03:28 PM. us Ordering Provider Marco Olsen LAB BLOOD ADD-ON Final Result Performing Organization Address [facility] de Phone Number [facility] [address] [place], [place] [address] [phone] * T4 (Thyroxine), Free (06/09/2024 2:30 PM CDT) EXT T4 (Thyroxine), Free, S 0.79 0.70 - 1.85 ng/dL [facility] 06/09/2024 2:30 PM CDT Narrative [facility] - 06/10/2024 9:31 AM CDT Source result document attached to Order Number [id number] ([id number]) dated 06/09/2024. External results verified in Extract by Corrine Daigle on 06/10/2024 at 09:28 AM. us Ordering Provider Marco Olsen LAB BLOOD ADD-ON Final Result Performing Organization Address [facility] de Phone Number [employer] [facility] [address] [place] [id number] [phone] from Last 3 Months [facility]
--- OUTSIDE RECORDS SUMMARY | 2024-08-09 19:06 | XMS_ITS | Clinical Summary ---
Author Organization [place] Address [facility] [place] [address] Care Team Providers Care Power Project Manager Name Role Phone Hayley Avery MD Primary Care Provider + [place], [facility] Unavailable U navailable Allergies No known active allergies Medications SUMAtriptan Succinate (IMITREX PO) Active Ondansetron (ZOFRAN ODT PO) Acti ve fluticasone (FLONASE) 50 MCG/ACT nasal spray [place] 2 sprays into both nostrils daily Active ondansetron (ZOFRAN) 4 MG tablet Take 1 tablet (4 mg) by mouth every 6 hours as needed for nausea 10 tablet 0 06/15/2014 Active Active Problems Estimated Date of Delivery Comme nts Yes 09/02/2024 Based on last me nstrual period of 11/27/2023 No known active problems Social History Tobacco Use Types Packs/Day Years Used Date Smoking Tobacco: Former Smokeless Tobacco: Never Alcohol Use Standard Drinks/Week Comments Yes 0 (1 standard drink = 0.6 oz pur e alcohol) monthly Estimated Date of Delivery Comme nts Yes 09/02/2024 Based on last me nstrual period of 11/27/2023 Sex and Gender Information Value Date Recorded Sex Assigned at Not on file 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 Gender Identity Not on file Sexual Orientation Not on file Last Filed Vital Signs Vital Sign Reading Time Taken Comments Blood Pressure 138/88 09/14/2014 10:43 PM CDT Pulse 81 09/14/2014 10:43 PM CDT Temperature 36.8 C (98.2 F) 09/14/2014 7:43 PM CDT Respiratory Rate 16 09/14/2014 10:43 PM CDT Oxygen Saturation 99% 09/14/2014 10:43 PM CDT Inhaled Oxygen Concentration - - Weight 101.2 kg (223 lb) 06/15/2014 7:34 PM CDT Height 182.9 cm (6') 09/14/2014 7:43 PM CDT Body Mass Index 30.24 06/15/2014 7:34 PM CDT Plan of Treatment Health Maintenance Due Date Last Done Comments ADVANCE CARE PLANNING 1992 ANNUAL REVIEW OF HM ORDERS 1992 YEARLY PREVENTIVE VISIT 07/02/1995 HIV SCREENING 07/02/2007 HEPATITIS C SCREENING 2010 PAP 11/02/2023 11/01/2020 MATERNAL SCREENING DISCUSSION 02/05/2024 PHQ-2 (once per calendar year) 2024 OBGCT (OB) 05/13/2024 TDAP VACCINE () 06/03/2024 GROUP B STREP SCREENING 08/05/2024 DTAP/TDAP/TD VACCINE (8 - Td or Tdap) 10/10/2030 10/10/2020, 05/19/2014, 09/02/2004, Additional history exists ZOSTER VACCINE (1 of 2) 2042 HEPATITIS B VACCINE Completed 09/30/1993, 1992, 1992 MENINGITIS VACCINE Aged Out 05/19/2014, 0 09/02/2004, 09/02/2004 No longer eligible based on patient's age to complete this topic HPV VACCINE Completed 02/29/2016, 10/18, 05/19/2014 COVID-19 VACCINE Completed 01/21/2024, , 12/12/2020, Additional history exists INFLUENZA VACCINE Completed 02/19/2024, , 11/10/2014, Additional history exists PNEUMOCOCCAL VACCINE: PEDIATRICS (0 to 5 YEARS) AND AT-RISK PATIENTS (6 to 49 YEARS) Aged Out No longer eligible based on patient's age to complete this topic RSV VACCINE (No Doses Required) Completed Insurance none (Work) 282DANGELO [address]aya [id number] [facility] [employer]CIAL [facility] LiquidText Care Teams Power Project Manager Relationship Specialty Start Date End Date Hayley Avery MD [facility] [address] [place] [address] PCP - General Family Medicine 03/14/24 [place] [facility] [address] [address] 03/14/24
--- OUTSIDE RECORDS SUMMARY | 2024-08-09 19:06 | XMS_ITS | Encounter Summary ---
Author Organization [facility] Address [address] [place] [address] Care Team Providers Care Internal Controls Analyst Name Role Phone Unavailable Primary Care Provider Unavailabl e Encounter Details Date Type Department Care Team (Late st Contact Info) Description 07/25/2024 Orders Only Division of Nephrology and Hypertension in [place], [place] [address] [place] [address] External, Ordering ProviderPretty Social History Tobacco Use Types Packs/Day Years Used Date Smoking Tobacco: Never Assessed Estimated Date of Delivery Comme nts Yes 09/12/2024 Sex and Gender Information Value Date Recorded Sex Assigned at Not on file 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 Gender Identity Not on file Sexual Orientation Not on file documented as of this encounter Plan of Treatment Not on file documented as of this encounter Procedures Procedure Name Priority Date/Time Associated Diagnosis Comments EXT OUTSIDE LAB TESTS Routine 07/25/2024 8:05 AM CDT documented in this encounter Results * EXT Outside Lab Tests (07/25/2024 8:05 AM CDT) EXT Miscellaneous See scanned report [facility] 07/25/2024 8:05 AM CDT Narrative [facility] - 07/27/2024 7:45 AM CDT External results verified in Extract by Corrine Daigle on 07/27/2024 at 07:42 AM. us Ordering Provider Marco Olsen LAB BLOOD NON AD D-ON Final Result [facility] [address] [place] [address] [phone] documented in this encounter Visit Diagnoses Not on filedocumented in this encounter
[2024-08-09 19:13] LABS: Amnisure Rom* POSITIVE
--- NOTE | 2024-08-09 19:35 | P.LDBA_ITS ---
Subjective History of Present Illness Date Seen: 08/09/24 Narrative: Patient is being admitted to Labor and Delivery for IOL after PPROM. She is a 34 year old at 36 4/7 weeks gestation. Her full history and physical was dictated by Dr. Squires on 08/01/24. Please see this for details. Patient states that she was doing well until about 5pm today where she felt a vaginal watery like discharge, patient states that she placed a pad and she filled out the pad quickly. Fluid was described as clear. Upon evaluation at labor and delivery patient was found to have a positive AmniSure and recommendation was given for admission. complicated by CHTN with superimposed preeclampsia. Specific Issues/Plans G1 partner: Michele H&P: by Dr. Squires on 08/01/24 # chronic hypertension on Meds with superimposed preeclampsia 07/21 Labetalol 100 mg b.i.d. Aspirin 81 mg Baseline pre E labs: Plts 328K, AST 23, ALT 24, Creat 0.6, BUN 11. pr/cr ratio: 0.13 Baseline 24 urine for protein: 347mg. Referred to nephrology Repeat Protein:creatinine on 07/12: 1.17. Repeat 24 hr urine 07/21: 840 mg [x] [place] - low risk, male! 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 # COVID at 26 weeks' gestation # Bilateral carpal tunnel. Recommend wrist braces. Imagin04/15/24: EFW 94%tile, AC 91%tile. Cervix 34.8 mm. Anterior placenta, no previa, three-vessel cord with normal insertions of the. MVP 4.5 cm. No anomalies but suboptimal views will repeat scan in 3 weeks. 05/05/2024: EFW 90%, AC 90%, MVP 5.6 cm. Recommendations: Continue growth scans q 4 weeks, weekly BPP beginning at 32 weeks, delivery at 37 0/7 to 39 6/7 weeks. 07/12/24: cephalic, SDP 3.7, EFW 81.9%, AC >97%. BPP 8/8 08/01/24: EFW >97%, AC >97%. Vaccinations: Covid: 01/21/24 Flu: [] Tdap: 06/30/24 RSV: N/A GBS: 08/01/24 32 week mental health: LIYA 2, PHQ 1 Last pap: 02/19/2024: WNL, (-)HPV. OB - Problem Based A/P Additional Plan (1) Pre-eclampsia added to pre-existing hypertension: Status: Acute (2) premature rupture of membranes (PPROM) with unknown onset of labor: Status: Acute Plan 1. IOL due to PPROM. Will start IV Oxytocin. 2. GBS negative no need for antibiotic prophylaxis. 3. Continuous monitoring. 4. Pain management as needed. Planning epidural. 5. CHTN with superimposed preeclampsia w/o severe features. Continue Labetalol 100mg BID. Admission labs collected will FU on results. Will only repeat if concerns arise for severe features. OB Exam Physical Exam Vital signs: Pulse BP Pulse Ox 91 132/86 97 08/09/24 19:06 08/09/24 19:06 08/09/24 18:57 Detailed Labor and Delivery Exam Patient Gravid: yes Dilation (cm): 3 Effacement (%): 60 Cervix position: mid Consistency: medium Fetus (Single) Station: -2 Amniotic Membrane Fluid Description: Clear Heart Rate Baseline: 145 Monitor Accelerations: Present Monitor Decelerations: None Usp Variability: Moderate (6-25)
[2024-08-09 20:21] LABS: Alanine Aminotransferase* 19 U/L (4-35); Aspartate Amino Transferase* 29 U/L (12-35); Blood Urea Nitrogen* 11 mg/dL (5-24); Creatinine* 0.6 mg/dL (0.5-1.5); Est. Creatinine Clearance* 155.34; Estimated Glomerular Filt Rate 122 ml/min
[2024-08-09 20:28] LABS: Basophils Percent Auto 0.3 % (0.0-3.0); Eosinophils Percent Auto 1.3 % (0.0-7.0); Hematocrit 39.5 % (33.0-51.0); Hemoglobin* 13.3 gm/dL (12.0-16.0); Immature Granulocytes Pct Auto 4.8 %; Lymphocytes Percent Auto 19.3 % (20-44); Mean Corpuscular HGB Conc 34 gm/dL (32-36); Mean Corpuscular Hemoglobin 32 pg (26-34); Mean Corpuscular Volume 96 fL (80-100); Monocytes Percent Auto 7.2 % (0.0-11.0); Neutrophils Percent Auto 67.1 % (42.0-72.0); Platelet Count* 294 K/uL (140-440); Red Blood Count 4.12 m/uL (4.00-5.20); White Blood Count* 13.88 K/uL (4.50-11.00)
[2024-08-09 20:29] LABS: Slide Review Reflex No
[2024-08-09] MEDS: OXYTOCIN 30 unit/500 ML in NS 30 UNIT/500 ML BAG IVPB (20:54)
[2024-08-09] MEDS: LACTATED RINGERS 1000 ML 1,000 ML 124 ML IV (20:54)
[2024-08-09] MEDS: LABETALOL HCL 100 MG TABLET PO (21:08)
[2024-08-10] VITALS (82 sets, daily range): BP systolic 96–160; BP diastolic 57–98; PULSE 75–108; RESP 16–18; TEMP 36.6–37.3; O2SAT 93–100
[2024-08-10] MEDS: ONDANSETRON 2 MG/ML inj 4 MG IV (00:21)
[2024-08-10] MEDS: LIDOCAINE 2% (PF) 5 ML VIAL EPIDURAL (00:40)
[2024-08-10] MEDS: ROPIVACAINE 0.2% 100 ml 100 ML 12 MG EPIDURAL ×2 (00:48→06:36)
--- NOTE | 2024-08-10 01:28 | PM.ANBPRC ---
[facility] Medical History Cigarette smoker ?F17.210 - Nicotine dependence, cigarettes, uncomplicated (ICD-10) Infertility, female, primary ?N97.9 - Female infertility, unspecified (ICD-10) Dyslipidemia ?E78.5 - Hyperlipidemia, unspecified (ICD-10) Vitamin D deficiency ?E55.9 - Vitamin D deficiency, unspecified (ICD-10) Obesity (BMI 30-39.9) ?E66.9 - Obesity, unspecified (ICD-10) Hypertension ?I10 - Essential (primary) hypertension (ICD-10) Moderate episode of recurrent major depressive disorder (05/11/17) ?F33.1 - Major depressive disorder, recurrent, moderate (ICD-10) Migraine with aura and without status migrainosus (05/19/07) ?G43.109 - Migraine with aura, not intractable, without status migrainosus (ICD-10) History of opioid abuse (2013) ?F11.11 - Opioid abuse, in remission (ICD-10) Hidradenitis suppurativa ?L73.2 - Hidradenitis suppurativa (ICD-10) Generalized anxiety disorder (05/11/17) ?F41.1 - Generalized anxiety disorder (ICD-10) Dysmenorrhea (09/01/07) ?N94.6 - Dysmenorrhea, unspecified (ICD-10) Allergic rhinitis ?J30.9 - Allergic rhinitis, unspecified (ICD-10) Surgical History History of wisdom tooth extraction ?K08.409 - Partial loss of teeth, unspecified cause, unspecified class (ICD-10) Family History Father Alcoholism Bipolar disorder Type 2 diabetes mellitus Mother Alcoholism Anxiety disorder Colon cancer, Onset Age: 50 Depression Uncle Bipolar disorder Brother Schizophrenia Social History Narrative: , 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 Does not smoke, quit 12/2023, history of 10 pack years Exercise 3 times a week 30 minute exercise video What is your current living situation?: I presently have a place to live Problems where you live: no known problems In the past 12 months, utilities in danger of being shut off: no In past 12 months, lack of transportation kept you from medical appts, meetings, work, or getting things needed for daily living: no In the past 12 mos, have been you worried that your food would run out before you had money to buy more?: never true In the past 12 mos, the food you bought just didn't last and you didn't have money to buy more?: never true Smoking Status: Current every day smoker How often does anyone, including family, friends and others, physically hurt you: never How often does anyone, including family, friends and others, insult or talk down to you: never How often does anyone, including family, friends and others, threaten you with harm: never How often does anyone, including family, friends and others, scream or curse at you: never Meds Home Medications and Allergies Home Medications ?Medication ?Instructions ?Recorded ?Confirmed ?Type cholecalciferol (vitamin D3) 125 100 mcg PO QDAY 12/30/22 08/09/24 History mcg (5,000 unit) capsule folic acid 800 mcg tablet 0.8 mg PO QDAY 07/09/23 08/09/24 History labetalol 100 mg tablet 100 mg PO BID #180 tabs 01/07/24 08/09/24 Rx [id number] 3 fatty no.1 27 cap PO 01/21/24 08/08/24 History mg-1 mg-300 mg capsule aspirin 81 mg chewable tablet 81 mg PO QDAY 03/14/24 08/09/24 History magnesium 200 mg tablet 200 mg PO QDAY 03/14/24 08/09/24 History diphenhydramine 25 1 tab PO QHS PRN 07/12/24 08/09/24 History mg-acetaminophen 500 mg tablet (Tylenol PM Extra Strength) Allergies Allergy/AdvReac Type Severity Reaction Status Date / Time bupropion Allergy Mild tachycardia Verified 08/09/24 20:12 Results Labs Labs: Laboratory Results - last 24 hr 08/09/24 08/09/24 18:57 19:50 WBC 13.88 H RBC 4.12 Hgb 13.3 Hct 39.5 MCV 96 MCH 32 MCHC 34 RDW Coeff of Mira 13.0 Plt Count 294 Neut % (Auto) 67.1 Lymph % (Auto) 19.3 L [place] % (Auto) 7.2 Eos % (Auto) 1.3 Baso % (Auto) 0.3 Neut # (Auto) 9.30 H Lymph # (Auto) 2.70 [place] # (Auto) 1.00 H Eos # (Auto) 0.20 Baso # (Auto) 0.00 Abs Immat Gran (auto) 0.70 H Imm/Tot Granulo (auto) 4.8 BUN 11 Creatinine 0.6 Estimated Creat Clear 155.34 Estimated GFR 122 AST 29 ALT 19 Membrane Rupture POSITIVE Blood Type A Positive Antibody Screen NEGATIVE Vital Signs Vital Signs: Last Vital Signs Temp 98.5 F 08/10/24 00:56 Pulse 89 08/10/24 01:27 Resp 16 08/10/24 00:56 BP 134/77 08/10/24 01:27 Pulse Ox 98 08/10/24 00:55 Weight: 135.261 kg Height: 182.88 cm Anesthesia Procedures Epidural Insertion Patient Location: OB Start Time: 00:10 Stop Time: 01:10 Start Date: 08/10/24 Stop Date: 08/10/24 Reason for Block: procedure for pain Patient Position: sitting Performed By: Nicky Stubbs Preanesthetic Checklist: IV checked, risks and benefits discussed, monitors and equipment checked, pre-op evaluation, timeout performed and anesthesia consent Prep: chlorhexidine gluconate Monitoring: blood pressure monitoring, continuous pulse oximetry and heart rate Approach: midline Vertebral Space: lumbar (1-5) Epidural Technique: JOSÉ saline Needle Type: Tuohy needle Injection Technique: continuous catheter (continuous catheter) Needle gauge: 17 Needle Length (cm): 10 cm Needle Insertion Depth (cm): 8 Catheter Gauge: 19 Catheter Type: multi-orifice Catheter at skin depth (cm): 15 Test Dose Result: negative and lidocaine 1.5% with epinephrine 1 to 200,000
[2024-08-10] MEDS: LACTATED RINGERS 1000 ML 1,000 ML 125 ML IV (01:46)
[2024-08-10] MEDS: LABETALOL HCL 100 MG TABLET PO (08:40)
[2024-08-10] MEDS: TRANEXAMIC ACID 100 MG/ML INJ 1000 MG IV (09:30)
[2024-08-10] MEDS: miSOPROStoL 800 MCG/4 TABLET PR (09:36)
[2024-08-10] MEDS: CARBOPROST TROMETHAMINE 250 MCG/ML INJ IM (09:44)
[2024-08-10 09:57] LABS: Basophils Percent Auto 0.2 % (0.0-3.0); Eosinophils Percent Auto 0.5 % (0.0-7.0); Hematocrit 37.9 % (33.0-51.0); Hemoglobin* 12.8 gm/dL (12.0-16.0); Immature Granulocytes Pct Auto 1.8 %; Lymphocytes Percent Auto 11.8 % (20-44); Mean Corpuscular HGB Conc 34 gm/dL (32-36); Mean Corpuscular Hemoglobin 33 pg (26-34); Mean Corpuscular Volume 97 fL (80-100); Monocytes Percent Auto 6.4 % (0.0-11.0); Neutrophils Percent Auto 79.3 % (42.0-72.0); Platelet Count* 275 K/uL (140-440); Red Blood Count 3.91 m/uL (4.00-5.20); Slide Review Reflex No; White Blood Count* 18.12 K/uL (4.50-11.00)
[2024-08-10] MEDS: CEFAZOLIN 1 GM inj IVP (10:18)
[2024-08-10 10:26] LABS: INR 1.13 (0.91-1.10); Prothrombin Time 15.3 Seconds
[2024-08-10 10:27] LABS: Fibrinogen* 514 mg/dL (200-450); Partial Thromboplastin Time* 25 Seconds (23-33)
--- NOTE | 2024-08-10 10:41 | P.ANES_ITS ---
Anesthesia Charges Start Date/Time Anesthesia Start Date: 08/10/24 Anesthesia Start Time: 09:55 Stop Date/Time Anesthesia Stop Date: 08/10/24 Anesthesia Stop Time: 11:00 Summary Emergency: GEMINI Coding CPT Codes CPT Codes: ANESTH INC/MISSED AB PROC - 87569 ([id number]) P3 - PATIENT W/SEVERE SYS DISEASE, QK - HORTICULTURAL FARMER 2-4 CNCRNT ANES PROC, QX - ASSEMBLER CATERPILLAR SPIDER SVC W/ MD MED DIRECTION Additional Codes: Summary - Emergency: GEMINI ([id number])
--- NOTE | 2024-08-10 10:41 | W.ANESCHARGE ---
Anesthesia Charges Start Date/Time Anesthesia Start Date: 08/10/24 Anesthesia Start Time: 09:55 Stop Date/Time Anesthesia Stop Date: 08/10/24 Anesthesia Stop Time: 11:00 Summary Emergency: GEMINI Coding CPT Codes CPT Codes: ANESTH INC/MISSED AB PROC - 66035 ([id number]) P3 - PATIENT W/SEVERE SYS DISEASE, QK - STORE PRODUCT DEMONSTRATOR 2-4 CNCRNT ANES PROC, QX - CLOTHING EXAMINER SVC W/ MD MED DIRECTION Additional Codes: Summary - Emergency: GEMINI ([id number])
--- NOTE | 2024-08-10 11:00 | P.GYNPRC_ITS ---
Procedure Note Will [facility] bill your pro fee for this procedure?: Yes Pre-op diagnosis: hemorrhage Manual removal of placenta with suspected retained products of conception Uterine atony Procedure: Exam under anesthesia Dilation and curettage under ultrasound guidance Placement of Aleshia device Anesthesia: epidural Complications: None. Complication of hemorrhage was noted across her delivery/surgical course with total QBL of 1790mL, 450mL from time in OR itself. Surgeon: David Bruner MD Hvac/R Instructor: Mansi Gilliland Estimated blood loss (mL): 450 (Total QBL from delivery/OR was 1790mL) Pathology: specimen obtained, sent to pathology Condition: stable Disposition: floor Findings: Preprocedure transabdominal ultrasound notable for thickened endometrium at the uterine fundus, approximately 1.5 cm in size, suspicious for retained products conception Unremarkable cervical inspection, no laceration Second-degree perineal laceration Postprocedure transabdominal ultrasound with thin, homogenous endometrial stripe throughout Lower uterine segment atony Procedure Description: After verifying written informed consent, the patient was taken to the operating room emergently in the setting of code purple. Anesthesia redosed her existing epidural, analgesia was found to be adequate. She was placed in the dorsal lithotomy position in llofin stirrups with care taken to avoid neurologic injury. She did receive a preoperative dose of ancef 3g. She was prepared and draped in the usual sterile fashion. A surgical pause was conducted to confirm correct patient and procedure. Bimanual exam was performed. Clot burden was noted secondary to lower uterine segment atony, no further tissue could be manually removed from the endometrium. Transabdominal ultrasound was performed, findings notable above. A Winnie retractor was utilized to retract the anterior vaginal wall and weighted speculum inserted. A ring forceps was applied to the anterior cervix, where under direct visualization transabdominal ultrasound a Banjo curette was introduced into the uterine cavity and advanced to the uterine fundus. The intrauterine contents were sharply curettaged, focusing my efforts at the uterine fundus where suspected retained products of conception were noted on ultrasound. Two passes were performed, with return of blood clot and likely retained products of conception. A 3rd pass was gently performed, confirming satisfactory uterine cri in all quadrants. A curved 14 suction curette was then advanced into the uterine cavity, advanced to the uterine fundus, and a single pass was performed with the suction curette with no return of products of conception. Transabdominal ultrasound was again performed, demonstrating a thin and homogeneous endometrial stripe throughout. We did speculum and Deavers were utilized to retract the anterior vaginal tissue and vaginal sidewalls. Using 2 ring forceps, the entirety of the cervix was run to exclude the possibility of a cervical laceration. No cervical laceration was seen. Complete vaginal exam was performed, no other apparent sites of trauma. A bimanual exam was again performed, where reaccumulation of clot was noted in the lower uterine segment consistent with lower uterine segment atony. This was manually evacuated. A Aleshia device was requested and prepared in the usual fashion. The Aleshia device was inserted vaginally and advanced into the lower uterine segment. Care was made to ensure the vaginal balloon was distal to the cervix. A total of 80 mL of sterile water was instilled in the vaginal balloon. 80mmHg was applied to the vacuum device. Return of approximately 50 mL of blood (half suction tubing) was noted as suction was applied, where bleeding advanced to nearly the length of the tubing (approximately 90mL) in the subsequent 60 seconds. No further bleeding was noted in the Aleshia canister or tubing. Fundus was noted to be firm, at 1 below umbilicus. No vaginal bleeding was noted around the Aleshia (aside from known, slightly oozing 2nd degree perineal laceration). The Aleshia tubing was gently retracted to allow for perineal repair. There was a superficial second-degree perineal laceration that was repaired in the usual fashion with 3-0 Vicryl. Excellent tissue approximation and hemostasis was noted throughout. Sponge and instrument count was correct. Patient received a total of 1 unit of A negative blood in the operating room. Her total QBL across delivery/OR was 1790mL. The patient was transferred to the recovery room in excellent condition. Endometrial curettings with suspected retained products of conception were submitted to pathology. Surgical debrief completed.
--- NOTE | 2024-08-10 11:00 | W.PM.VAGD1_ITS ---
Procedure Procedure Done: Global Procedure Details: Procedures Operation Date: 08/10/24 10:00 <No data on this case meets the specified criteria> Events: Labor < 37 Weeks, Chronic Hypertension, Pre-Eclampsia and Other (PPROM) Intrapartal Events: Labor Augmentation Delivery augmentation: pitocin Delivery monitor: external FHT Route of delivery: Laceration description: Perineal - 2nd Degree Delivery repair: Vicryl Estimated blood loss (mL): 1 Complications: hemorrhage Manual removal of placenta with suspected retained products of conception Uterine atony Narrative: Ligia Urbina is a 34 yo at 36w5d GA admitted for PPROM. is complicated by chronic hypertension with superimposed preeclampsia without severe features, anxiety, dyslipidemia, obesity (conceived while on a GLP-1), COVID in and tobacco use disorder. heart tones on admission were category 1. Her labor was augmented with Pitocin and epidural was utilized for pain management. Status of bag of soni: PPROM occurred prior to admission, clear fluid. heart tones during active labor were category 1. She was complete at 0816 and started pushing at 0835. She made excellent descent throughout the second stage of labor, and had a normal spontaneous vaginal delivery at 0906. heart tones during second stage of labor were category 1. Baby delivered OA, restituted GENARO and the anterior and posterior shoulders delivered without difficulty. Nuchal cord: Present x1, loose, reduced immediately following delivery. The cord was clamped and cut after delayed cord clamping. Cord gases sent: no Cord blood sent for infant ABO: No details: - Liveborn male fetus at 0906 - weight 3560g - APGARs were 8 and 9 at 1 and 5 minutes respectively Active management of the third stage occurred with IV pitocin and gentle cord traction. Moderate bleeding was noted immediately following delivery, where perineal and vaginal exam was completed and a small shallow second-degree laceration was noted. This was noted only be oozing slightly. No other sources a trauma and bleeding could be identified. Pressure was held on the perineal laceration, where active management of the 3rd stage continued with Pitocin, gentle cord traction and maternal expulsive efforts. Within a few minutes of delivery, continued and at times brisk bleeding was noted despite placenta remaining in situ. Vaginal exam performed, where the lower margin of the placenta could be palpated at the proximal vagina but placenta was still noted to be adherent to the uterus. Given continued bleeding, I did recommend we proceed with a manual extraction of the placenta where Ligia provided verbal consent. Analgesia was ongoing with her existing epidural. A hand was introduced into the vaginal canal, where again the distal edge of the anterior placenta could be palpated. The uterus was stabilized abdominally, where hand was advanced into the uterine cavity and gently established plane to separate the placenta from the uterine wall, making care to attempt not to disrupt the placenta and separate in its entirety. This was technically difficult only near the uterine fundus, but ultimately it was felt that the entire placenta was free. Gentle traction was applied on the placenta itself, and it was delivered at 0918. Placenta was inspected, noted to be largely intact aside with one 3cm or so area that was possibly incomplete. A repeat uterine sweep was performed, where no residual placental tissue could be palpated/removed but clot burden was noted to rapidly reaccumulate. Transabdominal ultrasound was requested and performed, where there was noted to be thickening of the endometrial stripe towards the uterine fundus with some internal Doppler flow concerning for possible retained products of conception. Throughout this time, uterine atony was noted where IV TXA, IM Hemabate and SC Cytotec was requested and administ ered. Despite these efforts, she continued to have vaginal bleeding with primarily lower uterine segment atony noted. Vaginal exam was again completed, where no other sources of bleeding could be noted. Cervix could not be visualized in its entirety in the room. Recommended transfer from Labor and Delivery to the Operating Room in the setting of hemorrhage (QBL 1.2L in drape, plus 10 unmeasured sponges), possible retained products of conception and inability to perform adequate assessment for cervical laceration. Edmar butler was called, requested patient be cross-matched for 2 units of packed red blood cells and that we initiate 1 unit of packed red blood cells now. Discussed anticipated plan in the operating room, including likely dilation and curettage, exam under anesthesia (to complete cervical assessment) and potentially placement of a Aleshia or Bakri. Reviewed risks including bleeding, infection, damage to surrounding structures, uterine perforation, complications of surgery/anesthesia such as heart attack, stroke and VTE. Written consent was per obtained. Transfer patient emergently to the operating room. Please see subsequent note for further details. Total QBL from delivery and subsequent D&C, EUA and Aleshia placement was 1.79L. Patient received 1 u pRBCs (A neg). [place] Infant Infant Gender: Male presentation: vertex Placental Delivery Description: Manual Removal Cord Description: 3 Vessels, Nuchal Cord and Loose
--- NOTE | 2024-08-10 11:10 | W.ANESCHARGE ---
Anesthesia Charges Start Date/Time Anesthesia Start Date: 08/10/24 Anesthesia Start Time: 09:55 Stop Date/Time Anesthesia Stop Date: 08/10/24 Anesthesia Stop Time: 11:00 Summary Emergency: SEROLOGY TEACHER Coding CPT Codes CPT Codes: ANESTH VAGINAL PROCEDURES - 10242 ([id number]) P3 - PATIENT W/SEVERE SYS DISEASE, QK - DOCUMENTATION SPEC 2-4 CNCRNT ANES PROC, QX - SEROLOGY TEACHER SVC W/ MD MED DIRECTION Additional Codes: Summary - Emergency: SEROLOGY TEACHER ([id number])
--- NOTE | 2024-08-10 11:10 | P.ANES_ITS ---
Anesthesia Charges Start Date/Time Anesthesia Start Date: 08/10/24 Anesthesia Start Time: 09:55 Stop Date/Time Anesthesia Stop Date: 08/10/24 Anesthesia Stop Time: 11:00 Summary Emergency: ERP PM Coding CPT Codes CPT Codes: ANESTH VAGINAL PROCEDURES - 41568 ([id number]) P3 - PATIENT W/SEVERE SYS DISEASE, QK - FEED PREPARATION OPERATOR 2-4 CNCRNT ANES PROC, QX - ERP PM SVC W/ MD MED DIRECTION Additional Codes: Summary - Emergency: ERP PM ([id number])
[2024-08-10 11:26] LABS: Hemoglobin* 12.9 gm/dL (12.0-16.0)
[2024-08-10 11:33] LABS: Ionized Calcium* 1.14 mmol/L (1.11-1.30)
--- NOTE | 2024-08-10 11:40 | SUR.OPER ---
PATIENT BROUGHT TO OR #5 PER CART. Patient positioned supine on OR #5. Pt. then moved into the lithotomy position for the procedure. DENIA PLACED IN THE UTERUS AT 10:31 FOR POST HEMORRHAGE BY MI SNOWDEN. THE DENIA WAS FILLED WITH 80cc STERILE WATER AND THE VACUUM PUMP WAS SET TO 80mm Hg AND TURNED ON CONTINUOUS SUCTION.
[2024-08-10 11:48] LABS: ABG PCO2 35 mmHG (35-45); Base Excess ABG -2.8 mmol/L (-3.0-3.0); Chloride* 105 mmol/L (96-114); HCO3 ABG 22 mmol/L (21-28); Oxygen Saturation ABG 99 % (92-100); PO2 ABG 93.1 mmHG (80-105); Sodium* 133 mmol/L (135-149); TCO2 ABG 20 mmol/l (21-30)
[2024-08-10 11:51] LABS: Anion Gap 6 mEq/L (7-15); Blood Urea Nitrogen* 10 mg/dL (5-24); Carbon Dioxide* 22 mmol/L (20-32); Creatinine* 0.6 mg/dL (0.5-1.5); Est. Creatinine Clearance* 155.34; Estimated Glomerular Filt Rate 122 ml/min
[2024-08-10 11:52] LABS: Calcium* 8.8 mg/dL (8.4-10.6); Glucose* 99 mg/dL (60-115)
[2024-08-10 11:54] LABS: INR 1.09 (0.91-1.10); Partial Thromboplastin Time* 25 Seconds (23-33); Prothrombin Time 14.9 Seconds
[2024-08-10 11:55] LABS: Fibrinogen* 474 mg/dL (200-450)
[2024-08-10] MEDS: ACETAMINOPHEN 500 MG TABLET 1000 MG PO ×2 (12:18→20:40)
[2024-08-10 19:21] LABS: Basophils Percent Auto 0.2 % (0.0-3.0); Eosinophils Percent Auto 0.5 % (0.0-7.0); Hematocrit 33.8 % (33.0-51.0); Hemoglobin* 11.4 gm/dL (12.0-16.0); Lymphocytes Percent Auto 13.5 % (20-44); Mean Corpuscular HGB Conc 34 gm/dL (32-36); Mean Corpuscular Hemoglobin 32 pg (26-34); Mean Corpuscular Volume 96 fL (80-100); Monocytes Percent Auto 8.2 % (0.0-11.0); Neutrophils Percent Auto 73.6 % (42.0-72.0); Platelet Count* 261 K/uL (140-440); Red Blood Count 3.52 m/uL (4.00-5.20); White Blood Count* 22.13 K/uL (4.50-11.00)
[2024-08-10 19:22] LABS: Slide Review Reflex No
[2024-08-11] MEDS: ACETAMINOPHEN 500 MG TABLET 1000 MG PO ×3 (02:54→21:24)
[2024-08-11 05:04] VITALS: BP 122/86; PULSE 91; RESP 16; TEMP 36.8; O2SAT 96
[2024-08-11 06:23] LABS: Basophils Percent Auto 0.2 % (0.0-3.0); Eosinophils Percent Auto 1.4 % (0.0-7.0); Hematocrit 28.6 % (33.0-51.0); Hemoglobin* 9.6 gm/dL (12.0-16.0); Immature Granulocytes Pct Auto 3.5 %; Mean Corpuscular HGB Conc 34 gm/dL (32-36); Mean Corpuscular Hemoglobin 32 pg (26-34); Mean Corpuscular Volume 97 fL (80-100); Monocytes Percent Auto 7.4 % (0.0-11.0); Neutrophils Percent Auto 65.5 % (42.0-72.0); Platelet Count* 244 K/uL (140-440); RDW Coefficient of Variation % 14.4 % (11.5-15.5); Red Blood Count 2.96 m/uL (4.00-5.20); White Blood Count* 18.16 K/uL (4.50-11.00)
[2024-08-11 06:25] LABS: Slide Review Reflex No
[2024-08-11 08:23] VITALS: BP 122/84; PULSE 90; RESP 16; TEMP 36.8; O2SAT 97
--- NOTE | 2024-08-11 10:21 | PM.OBPNVD1 ---
OB - PN:Subj Subjective Date Seen: 08/11/24 Patient comments OB post-: no complaints, pain well controlled, tolerating diet and flatus present Henderson status: and doing well Henderson feeding status: expressed and bottle feeding Narrative: Ligia feels well.? Her pain is well controlled with current medications.? She has no new complaints.? Urinary output is adequate and she is voiding without difficulty.? Has a good appetite, is tolerating a general diet, is passing flatus, and has had a bowel movement.? Has small amount of rubra lochia.? She is ambulating well. She is hand expressing and finger feeding due to a tongue tie on the infant. Encouraged nursing and assistance. Plan to initiate pumping today. Blood pressure medication was held yesterday after the PPH. Blood pressures remain in the normal range. Will continue to hold and can consider restarting if blood pressures are increasing. ? OB - PN: Obj Exam Physical Exam: Vital signs: Temp Pulse Resp BP Pulse Ox O2 Del Method FiO2 98.2 F 90 16 122/84 97 Room Air 0.21 08/11/24 08:23 08/11/24 08:23 08/11/24 08:23 08/11/24 08:23 08/11/24 08:23 08/11/24 08:23 08/10/24 11:49 Narrative: GENERAL APPEARANCE:? normal affect, alert, no distress? MOOD:? appropriate? CHEST:? clear to auscultation and percussion? HEART:? regular rate and rhythm? ABDOMEN:? soft, non-tender the uterine fundus is U/2 and is appropriate for the stage of recovery.? PERINEUM:? mild edema of the perineum, there is a 2nd degree laceration that is healing well.? EXTREMITIES:? normal and no edema? OB - PN: Obj Data Labs Labs: Laboratory Results - last 24 hr 08/09/24 08/10/24 08/10/24 19:50 09:47 11:17 WBC RBC Hgb 12.9 Hct MCV MCH MCHC RDW Coeff of Mira Plt Count Neut % (Auto) Lymph % (Auto) [place] % (Auto) Eos % (Auto) Baso % (Auto) Neut # (Auto) Lymph # (Auto) [place] # (Auto) Eos # (Auto) Baso # (Auto) Abs Immat Gran (auto) Imm/Tot Granulo (auto) INR 1.13 H 1.09 APTT 25 25 Fibrinogen 514 H 474 H ABG pH 7.40 ABG pCO2 35 ABG pO2 93.1 ABG HCO3 22 ABG Total CO2 20 L ABG O2 Saturation 99 ABG Base Excess -2.8 Sodium 133 L Potassium 4.0 Chloride 105 Carbon Dioxide 22 Anion Gap 6 L BUN 10 Creatinine 0.6 Estimated Creat Clear 155.34 Estimated GFR 122 Glucose 99 Calcium 8.8 Ionized Calcium Mauro Cancelled Blood Type A Positive Antibody Screen NEGATIVE Crossmatch ([facility]) See Detail 08/10/24 08/10/24 08/11/24 11:17 19:02 05:54 WBC 22.13 H 18.16 H RBC 3.52 L 2.96 L Hgb 11.4 L 9.6 L Hct 33.8 28.6 L MCV 96 97 MCH 32 32 MCHC 34 34 RDW Coeff of Mira 14.0 14.4 Plt Count 261 244 Neut % (Auto) 73.6 H 65.5 Lymph % (Auto) 13.5 L 22.0 [place] % (Auto) 8.2 7.4 Eos % (Auto) 0.5 1.4 Baso % (Auto) 0.2 0.2 Neut # (Auto) 16.30 H 11.90 H Lymph # (Auto) 3.00 H 4.00 H [place] # (Auto) 1.80 H 1.30 H Eos # (Auto) 0.10 0.30 Baso # (Auto) 0.00 0.00 Abs Immat Gran (auto) 0.90 H 0.60 H Imm/Tot Granulo (auto) 4.0 3.5 INR APTT Fibrinogen ABG pH ABG pCO2 ABG pO2 ABG HCO3 ABG Total CO2 ABG O2 Saturation ABG Base Excess Sodium Potassium Chloride Carbon Dioxide Anion Gap BUN Creatinine Estimated Creat Clear Estimated GFR Glucose Calcium Ionized Calcium Mauro 1.14 Blood Type Antibody Screen Crossmatch ([facility]) OB - PN: A/P Delivery Assessment and Plan (1) Pre-eclampsia added to pre-existing hypertension: Status: Acute (2) Chronic hypertension in : Status: Acute (3) Hypertension: Status: Chronic (4) Obesity (BMI 30-39.9): Status: Chronic (5) Generalized anxiety disorder: Problem details: Not on any medications not a problem Status: Inactive (6) Lactating mother: Status: Acute (7) care following vaginal delivery: Status: Acute Plan day: 1 Plan: routine care Comments: Anticipate discharge home tomorrow.
[2024-08-11 13:57] VITALS: BP 118/80; PULSE 93; RESP 16; TEMP 36.8; O2SAT 97
[2024-08-11 14:40] LABS: Rapid Plasma Reagin (RPR) Non Reactive (Non Reactive)
[2024-08-11 17:00] VITALS: BP 117/77; PULSE 90; RESP 16; TEMP 36.8; O2SAT 98
[2024-08-11 20:57] VITALS: BP 121/84; PULSE 92; RESP 16; TEMP 36.7; O2SAT 96
[2024-08-12 00:32] VITALS: BP 117/84; PULSE 99; RESP 18; TEMP 36.7; O2SAT 97
[2024-08-12 04:10] VITALS: BP 120/70; PULSE 96; RESP 17; TEMP 36.7; O2SAT 97
--- NOTE | 2024-08-12 08:03 | PM.OBDSVD1 ---
DS: Providers Provider Date Seen: 08/12/24 Date of admission: 08/09/24 19:23 Primary care physician: Hayley Avery MD Admitting Clinician: Diana Oneill MD Attending Physician on discharge: Ladonna Gallardo CNM Date of Discharge: 08/12/24 DS: Diagnosis Discharge Diagnosis (1) care following vaginal delivery: Status: Acute (2) Lactating mother: Status: Acute (3) Pre-eclampsia added to pre-existing hypertension: Status: Acute (4) Chronic hypertension in : Status: Acute Exam Narrative: Exam Narrative: VSS, afebrile GENERAL APPEARANCE: ?normal affect, alert, no distress MOOD: ?appropriate HEENT: normocephalic, neck supple, full ROM CHEST: ?Symmetrical chest wall movement. ?Normal respiratory effort. ?Clear to auscultation HEART: ?regular rate and rhythm ABDOMEN: ?soft, non-tender. Uterine fundus is firm, 3 below Umbilicus, Midline and is appropriate for the stage of recovery. ?Bowel sounds present. PERINEUM: ?mild edema of the perineum, there is a 2nd degree laceration that is healing well. EXTREMITIES: ?normal and 1+ edema Const: Vital Signs, click to edit/add: Vital Signs - 24 hr 08/11/24 08:23 08/11/24 13:57 08/11/24 17:00 Temperature 98.2 F 98.2 F 98.2 F Pulse Rate [Pulse Oximeter] 90 93 90 Respiratory Rate 16 16 16 Blood Pressure [Ri ght Arm] 122/84 118/80 117/77 Pulse Oximetry 97 97 98 Oxygen Delivery Me thod Room Air Room Air Room Air 08/11/24 20:57 08/12/24 00:32 08/12/24 04:10 Temperature 98.1 F 98.0 F 98.1 F Pulse Rate [Pulse Oximeter] 92 99 96 Respiratory Rate 16 18 17 Blood Pressure [Ri ght Arm] 121/84 117/84 120/70 Pulse Oximetry 96 97 97 Oxygen Delivery Me thod Room Air Room Air Room Air Documenting provider has reviewed patient's vital signs: yes OB - DS: Summary Hospital Course Hospital Course: Ligia is a 34 y.o. who was admitted to [facility] for induction of labor. ?She had an uncomplicated NVD.?The patient feels well. ?The pain is well controlled with current medications. ?She has no new complaints. ?She is breast feeding and reports things are going ok, they have been finger feeding and working with on feeding. has a tongue tie.? the patient has done well.? Vitals have been stable.? She has remained afebrile.? Has a good appetite, is tolerating a general diet. ?She is voiding without difficulty.? She is passing gas and has had a bowel movement.? She is ambulating and denies any dizziness.? Has Small amount of rubra lochia. ?She is planning the mini pill for prevention. Peripartum Data Infant delivery method: Vaginal Laceration description: Perineal - 2nd Degree Procedures: Procedures Operation Date: 08/10/24 10:00 Actual Procedure Side Surgeon p EXAM UNDER ANESTHESIA, Suction Dilatation & Curettage, DENIA PLACEMENT Stephenie Bruner MD complications: none [place] Gender: Male Discharge Plan: Home Status at Discharge Functional status at discharge: independent ambulation Overall status at discharge: patient is progressing back to baseline Time Spent with Patient Time attestation: Total time spent providing and/or coordinating discharge services: Time spent: Less than 30 minutes Discharge Plan Discharge Disposition: Home, Self-Care Date of Admission: 08/09/24 19:23 Attending Provider on Discharge: Ladonna Gallardo Primary Care Provider: Hayley Avery Condition: Stable Anticipated Discharge Date/Time: 08/12/24 12:00 Discharge Medications: New acetaminophen 500 mg Tablet 1,000 mg PO Q6H PRN (Reason: pain/fever) Qty: 0 0RF ferrous sulfate 325 mg (65 mg iron) Tablet 325 mg PO Q48H Qty: 30 0RF docusate sodium [Colace] 100 mg capsule 100 mg PO DAILY Qty: 60 0RF ibuprofen 600 mg tablet 600 mg PO Q6H PRNQty: 60 0RF Continued labetalol 100 mg tablet 100 mg PO BID Qty: 180 3RF [id number] 3 fatty no.1 27-1-300 mg capsule 1 cap PO DAILY PRN magnesium 200 mg tablet 200 mg PO QDAY cholecalciferol (vitamin D3) 125 mcg (5,000 unit) capsule 100 mcg PO QDAY folic acid 800 mcg tablet 0.8 mg PO QDAY diphenhydramine-acetaminophen [Tylenol PM Extra Strength] 25-500 mg tablet 1 tab PO QHS PRN Discontinued aspirin 81 mg tablet,chewable 81 mg PO QDAY Discharge Orders: Discharge Order (Routine); Ordered 08/12/24 Ordered By: Ladonna Gallardo Patient Education: OB Over the Counter Medication Information, OB Vaginal/Breast Feeding Additional Instructions: Discharge instructions were reviewed with the patient including signs and symptoms of infection and home going medications Nothing vaginally for 6 weeks: no tampons or intercourse Off Work or School for 6 weeks Follow Up [facility] for a BP check?[08/15 or 08/16/24] Call with BP greater than or equal to 150/100 or consistent BP 140/90 or greater. 2-week visit: discuss infant feeding concerns, review control options and screen for anxiety/depression. 6-week visit for an annual exam. consultation services are available to all mothers and babies for the first year after delivery.? To make an appointment, please call [phone]. Activity Level: Activity as Tolerated Discharge Diet: Regular Follow Up App[facility]ments: [facility] [Provider Group] Forms: Must See [facility] Info Instructions
[2024-08-12 08:57] VITALS: BP 120/85; PULSE 101; RESP 16; TEMP 37.4; O2SAT 98
[2024-08-12] MEDS: FERROUS SULFATE 325 MG TABLET PO (09:05)
[2024-08-12] MEDS: DOCUSATE SODIUM 100 MG CAPSULE PO (09:05)
== END 2024-08-12 12:45 | disposition home or self-care (01) | DRG 768 ==
LOC: OB OUT 19:24 → OB 19:24
PROVIDERS: Obstetrics & Gynecology; Admitting Provider Obstetrics & Gynecology; PCP Family Medicine; Visit Provider Obstetrics & Gynecology
PROC: 10E0XZZ Delivery of Products of Conception, External Approach (ICD-10-PCS; principal; 2024-08-10 10:00)
DX: O42.013 Preterm premature rupture of membranes, onset of labor within 24 hours of rupture, third trimester (principal); Z37.0 Single live birth; O10.92 Unspecified pre-existing hypertension complicating childbirth; O72.0 Third-stage hemorrhage; O72.1 Other immediate postpartum hemorrhage; O11.4 Pre-existing hypertension with pre-eclampsia, complicating childbirth; O70.1 Second degree perineal laceration during delivery; O99.344 Other mental disorders complicating childbirth; F41.1 Generalized anxiety disorder; O99.334 Smoking (tobacco) complicating childbirth; F17.210 Nicotine dependence, cigarettes, uncomplicated; O99.214 Obesity complicating childbirth; E66.9 Obesity, unspecified; Z3A.36 36 weeks gestation of pregnancy
CPT/HCPCS: 00940; 01965; 01967; 36415; 36600; 76815; 80048; 82330; 82565; 82803; 84112; 84450; 84460; 84520; 85018; 85025; 85027; 85384; 85610; 85730; 86592; 86850; 86900; 86901; 86922; 94761; 99140; A9270; J0690; J2250; J2405; J2590; J2795; J7120; P9016

== ENCOUNTER 2024-10-19 10:45 | Outpatient (CLI) | payer OTHER, SELFPAY | END 2024-10-19 10:46 | disposition home or self-care (01) | LOC: NFLDREF 10-24 21:14 | PROVIDERS: PCP Family Medicine; Referring Provider Family Medicine; Visit Provider Internal Medicine Nephrology | DX: I10 Essential (primary) hypertension (principal); N39.0 Urinary tract infection, site not specified; E78.5 Hyperlipidemia, unspecified; E55.9 Vitamin D deficiency, unspecified; E66.9 Obesity, unspecified; R73.09 Other abnormal glucose | CPT/HCPCS: 80069; 81015; 82043; 82570; 82607; 82728; 83540; 83550; 83970; 84550; 85027; 86140; 87086 ==

== ENCOUNTER 2024-12-15 09:30 | Outpatient (CLI) | payer OTHER, SELFPAY | END 2024-12-15 09:31 | disposition home or self-care (01) | LOC: NFLDREF 12-16 10:29 | PROVIDERS: PCP Family Medicine; Referring Provider Family Medicine; Visit Provider Internal Medicine Nephrology | DX: R80.9 Proteinuria, unspecified (principal) | CPT/HCPCS: 80061; 80069; 81015; 82043; 82570; 84156; 84450; 84460; 84550; 85027; 87086 ==

== ENCOUNTER 2024-12-19 14:43 | Outpatient (CLI) | payer OTHER, SELFPAY | END 2024-12-19 14:44 | disposition home or self-care (01) | PROVIDERS: PCP Family Medicine; Visit Provider Internal Medicine Nephrology | DX: R80.9 Proteinuria, unspecified (principal) | CPT/HCPCS: 82784; 83036; 83516; 83520; 84155; 84165; 86140; 86160; 86200; 86256; 86334 ==